=== PATIENT | female | born 1975 | race African-American/Black ===

== ENCOUNTER → 2017-01-02 | Outpatient (CLI) | payer BC ==
[~2017-01-02] MED LIST: ABAC1TAB13 PO; CALC-178 PO; CETI10TA22 PO; IBUP200T44 PO; MEDR5TAB PO
--- NOTE | 2017-01-02 13:51 | KCIC ---
DATE: 01/02/2017 EXAM: MAMMO MAGNUS SCREENING BILATERAL HISTORY: Routine screening COMPARISON: 12/27/2015 This study was interpreted with the benefit of Computerized Aided Detection (CAD). The breast parenchyma is heterogeneously dense, which could reduce sensitivity of mammography. Breast parenchyma level C. FINDINGS: 2-D and 3-D tomosynthesis imaging was performed in CC and MLO projections. There is an unchanged benign-appearing lymph node type density in the superior aspect of the left breast as seen on the oblique view. No new or enlarging breast densities are seen. No suspicious microcalcifications are evident. IMPRESSION: Stable mammograms without evidence of malignancy. BI-RADS CATEGORY: 2 BENIGN FINDING(S) RECOMMENDED FOLLOW-UP: 12M 12 MONTH FOLLOW-UP PQRS compliance statement: Patient information was entered into a reminder system with a target due date for the next mammogram. Mammography is a sensitive method for finding small breast cancers, but it does not detect them all and is not a substitute for careful clinical examination. A negative mammogram does not negate a clinically suspicious finding and should not result in delay in biopsying a clinically suspicious abnormality. "Our facility is accredited by the [employer] Mammography [employer]."
== END | disposition home or self-care (01) ==
LOC: KCIC MAMMO 12:36
PROVIDERS: ATTEND Internal Medicine
DX: Z12.31 Encounter for screening mammogram for malignant neoplasm of breast (principal)
CPT/HCPCS: 77063; G0202; 77067

== ENCOUNTER 2017-02-12 10:01 | Day surgery (SDC) | payer BC ==
[2017-02-12 10:50] LABS: NEG OBC UR NEG; POS OBC UR POS
[2017-02-12] MEDS: IV RINGERS,LACTATED 1000ML 1,000 ML IV (11:02)
[2017-02-12] MEDS ORDERED: ONDANSETRON PF 4 MG/2 ML VIAL. (11:58)
[2017-02-12] MEDS ORDERED: LIDOCAINE 2% PF Vial for OR 5 ML VIAL. (11:58)
[2017-02-12] MEDS ORDERED: MIDAZOLAM HCL/PF 2 MG/2 ML VIAL. (11:58)
[2017-02-12] MEDS ORDERED: PROPOFOL 20 ML IV (11:58)
[2017-02-12] MEDS ORDERED: DEXAMETHASONE SOD PHOS 20 MG/5 ML VIAL. (11:58)
[2017-02-12] MEDS ORDERED: fentaNYL PF VIAL 100 MCG/2 ML VIAL (13:28)
[2017-02-12] MEDS: NORMAL SALINE IV (13:40)
[2017-02-12] MEDS: CEFAZOLIN SODIUM IV (13:40)
[2017-02-12] MEDS ORDERED: SEVOFLURANE 31 TO 60 MINUTES. IH (13:44)
[2017-02-12] MEDS ORDERED: LIDOCAINE 1% PF 2 ML VIAL. ID (15:30)
[2017-02-12] MEDS ORDERED: fentaNYL PF VIAL 100 MCG/2 ML VIAL IV (15:30)
[2017-02-12] MEDS ORDERED: HYDROmorphone 2 MG/ML VIAL IV (15:30)
[2017-02-12] MEDS ORDERED: IV RINGERS,LACTATED 1000ML 1,000 ML IV (15:30)
[2017-02-12] MEDS ORDERED: PROCHLORPERAZINE 10 MG/2 ML VIAL. IV (15:30)
[2017-02-12] MEDS ORDERED: ONDANSETRON PF 4 MG/2 ML VIAL. IV (15:30)
[2017-02-12] MEDS ORDERED: MORPHINE SULFATE 2 MG/ML DISP.SYRIN. IV (15:30)
[2017-02-12] MEDS: fentaNYL PF VIAL 100 MCG/2 ML VIAL IV (15:37)
[2017-02-12] MEDS: IBUPROFEN 200 MG TABLET. PO (15:49)
== END 2017-02-12 16:43 | disposition home or self-care (01) ==
LOC: SURG 10:01
DX: N84.0 Polyp of corpus uteri (principal); N92.0 Excessive and frequent menstruation with regular cycle; Z87.448 Personal history of other diseases of urinary system
CPT/HCPCS: 58563; 81025; J1100; J2250; J2405; J2704; J3010

== ENCOUNTER → 2018-01-06 | Outpatient (CLI) | payer BC ==
[2017-02-12 15:47] VITALS: BP 127/69
--- NOTE | 2018-01-06 12:40 | KCIC ---
Bilateral digital screening mammograms with 3-D tomosynthesis: Reason for examination: Routine screening. Comparison is made to previous studies dated back to 12/01/2014. Bilateral mammograms in CC and oblique projections were obtained with 2-D imaging and 3-D tomosynthesis imaging on a Siemens Inspiration unit and reviewed on the workstation. Interpretation was made with the benefit of CAD. The skin and nipples show no abnormalities. No abnormal axillary lymph nodes are seen. The breast parenchyma is extremely dense. (Breast density: Category D.) There are no dominant masses, suspicious calcifications or architectural distortion. Impression: No evidence of malignancy. Recommend routine screening. Your patient's mammogram demonstrates that she has dense breast tissue (breast density category C or D), which could hide abnormalities, and if she has other risk factors for breast cancer that have been identified, she might benefit from supplemental screening tests that may be suggested by you as her ordering physician. Dense breast tissue, in and of itself, is a relatively common condition. Therefore, this information is not provided to cause undue concern, but rather to raise your awareness and to promote discussion with your patient regarding the presence of other risk factors, in addition to dense breast tissue. Your patient's mammography results will be sent to her. BI-RAD Category 1: Negative. "Our facility is accredited by the [employer] Mammography [employer]." This patient's information has been entered into a reminder system for the patient to be notified with the results of her examination and a target date for the next mammogram. Electronically signed by: Viviana Peterson MD (01/06/2018 12:36 PM) [id number]
== END | disposition home or self-care (01) ==
LOC: KCIC MAMMO 09:26
PROVIDERS: ATTEND Internal Medicine
DX: Z12.31 Encounter for screening mammogram for malignant neoplasm of breast (principal)
CPT/HCPCS: 77063; 77067

== ENCOUNTER → 2019-01-07 | Outpatient (CLI) | payer BC ==
[2017-02-12 15:47] VITALS: BP 127/69
--- NOTE | 2019-01-07 16:22 | KCIC ---
Bilateral digital screening mammograms with 3-D tomosynthesis: Reason for examination: Routine screening. Comparison is made to previous studies dated 01/06/2018 and 01/02/2017. Bilateral mammograms in CC and oblique projections were obtained with 2-D imaging and 3-D tomosynthesis imaging on a Siemens Inspiration unit and reviewed on the workstation. Interpretation was made with the benefit of CAD. The skin and nipples show no abnormalities. No abnormal axillary lymph nodes are seen. The breast parenchyma is extremely dense. (Breast density: Category D.) There are no dominant masses, suspicious calcifications or architectural distortion. Impression: No evidence of malignancy. Recommend routine screening. Your patient's mammogram demonstrates that she has dense breast tissue (breast density category C or D), which could hide abnormalities, and if she has other risk factors for breast cancer that have been identified, she might benefit from supplemental screening tests that may be suggested by you as her ordering physician. Dense breast tissue, in and of itself, is a relatively common condition. Therefore, this information is not provided to cause undue concern, but rather to raise your awareness and to promote discussion with your patient regarding the presence of other risk factors, in addition to dense breast tissue. Your patient's mammography results will be sent to her. BI-RAD Category 2: Benign. "Our facility is accredited by the [employer] Mammography [employer]." This patient's information has been entered into a reminder system for the patient to be notified with the results of her examination and a target date for the next mammogram. Electronically signed by: Viviana Peterson MD (01/07/2019 4:19 PM) [id number]
== END | disposition home or self-care (01) ==
LOC: KCIC MAMMO 14:51
PROVIDERS: ATTEND Internal Medicine
DX: Z12.31 Encounter for screening mammogram for malignant neoplasm of breast (principal)
CPT/HCPCS: 77063; 77067

== ENCOUNTER → 2020-01-09 | Outpatient (CLI) | payer BC ==
[2017-02-12 15:47] VITALS: BP 127/69
[~2020-01-09] MED LIST changes: -CETI10TA22 PO; +CETI10TA74 PO
--- NOTE | 2020-01-09 17:09 | KCIC ---
Bilateral digital screening mammograms and tomosynthesis Reason for examination: Routine screening. Comparison is made to previous study dated January 07, 2019 and priors Routine CC and MLO digital views obtained. Interpretation was made with the benefit of CAD. The skin and nipples show no abnormalities. No abnormal axillary lymph nodes are seen. The breast parenchyma is extremely dense. (Breast density: Category D.) There are no suspicious masses, suspicious calcifications or architectural distortion. Impression: Negative mammogram. Recommend routine screening. ?Your patient's mammogram demonstrates that she has dense breast tissue (breast density category C or D), which could hide abnormalities, and if she has other risk factors for breast cancer that have been identified, she might benefit from supplemental screening tests that may be suggested by you as her ordering physician. Dense breast tissue, in and of itself, is a relatively common condition. Therefore, this information is not provided to cause undue concern, but rather to raise your awareness and to promote discussion with your patient regarding the presence of other risk factors, in addition to dense breast tissue. Your patient's mammography results will be sent to her. BI-RAD Category 1: Negative. "Our facility is accredited by the [employer] Mammography [employer]." This patient's information has been entered into a reminder system for the patient to be notified with the results of her examination and a target date for the next mammogram. Electronically signed by: Jesús Hurst MD (01/09/2020 5:05 PM) [id number]
== END ==
LOC: KCIC MAMMO 10:59
PROVIDERS: ATTEND Internal Medicine
DX: Z12.31 Encounter for screening mammogram for malignant neoplasm of breast (principal)
CPT/HCPCS: 77063; 77067

== ENCOUNTER → 2021-01-08 | Outpatient (CLI) | payer BC ==
[2017-02-12 15:47] VITALS: BP 127/69
--- NOTE | 2021-01-08 14:19 | KCIC ---
Bilateral digital screening mammograms with 3-D tomosynthesis: Reason for examination: Routine screening. Comparison is made to previous studies dated back to 12/01/2014. Bilateral mammograms in CC and oblique projections were obtained with 2-D imaging and 3-D tomosynthes is imaging on a Siemens Inspiration unit and reviewed on the workstation. Interpretation was made nolvia olea the benefit of CAD. The skin and nipples show no abnormalities. No abnormal axillary lymph nodes are seen. The breast par enchyma is extremely dense. (Breast density: Category D.) There appears to be a small 1 cm circumscri bed nodule in the 7:00 position of the right breast approximately 5.5 cm from the nipple. There also appears to be a 2.2 cm elongated nodular density at approximately the 5:00 position 8 cm from the nip ple in the right breast. Recommend further evaluation with ultrasound. There are no other dominant ma sses, suspicious calcifications or architectural distortion. Impression: Nodular densities at the 5:00 C and 7:00 B positions of the right breast. Recommend further evaluatio n with ultrasound. Your patient's mammogram demonstrates that she has dense breast tissue (breast density category C or D), which could hide abnormalities, and if she has other risk factors for breast cancer that have bee n identified, she might benefit from supplemental screening tests that may be suggested by you as her ordering physician. Dense breast tissue, in and of itself, is a relatively common condition. Therefo re, this information is not provided to cause undue concern, but rather to raise your awareness and t o promote discussion with your patient regarding the presence of other risk factors, in addition to d ense breast tissue. Your patient's mammography results will be sent to her. BI-RAD Category 0: Incomplete. Needs additional imaging evaluation. "Our facility is accredited by the [employer] Mammography Program." This patient's information has been entered into a reminder system for the patient to be notified nolvia olea the results of her examination and a target date for the next mammogram. Electronically signed by: Viviana Peterson MD (01/08/2021 2:17 PM) [email or web address]
== END ==
LOC: KCIC MAMMO 12:39
PROVIDERS: ATTEND Internal Medicine
DX: Z12.31 Encounter for screening mammogram for malignant neoplasm of breast (principal)
CPT/HCPCS: 77063; 77067

== ENCOUNTER → 2021-01-23 | Outpatient (CLI) | payer BC ==
[2017-02-12 15:47] VITALS: BP 127/69
--- NOTE | 2021-01-23 15:23 | KCIC ---
Right breast ultrasound: Reason for examination: Nodular densities on screening mammogram. Comparison is made to mammographic exam dated 01/08/2021. Ultrasound examination of the right breast and axilla was performed. There is a small 9.7 x 8.8 x 3.8 mm hypoechoic circumscribed lesion in parallel orientation at the 7: 00 position 4 cm from the nipple which likely represent small fibroadenoma. There is also a small 5.3 x 4.3 mm hypoechoic fibrocystic type nodule at the 7:00 position 6 cm from the nipple. No other disc rete cystic or solid nodules are seen in the right breast. No abnormal appearing lymph nodes are seen in the right axilla. IMPRESSION: Benign-appearing 9.7 mm nodule probably representing a fibroadenoma at the 7:00 position 4 cm from th e nipple. Fibrocystic type 5.3 mm nodule at the 7:00 position 6 cm from the nipple. Recommend 6 month follow-up with right breast mammograms and ultrasound. BI-RADS Category 3: Probably Benign. "Our facility is accredited by the [employer] Mammography [employer]." This patient's information has been entered into a reminder system for the patient to be notified wit h the results of her examination and a target date for the next mammogram. Electronically signed by: Viviana Peterson MD (01/23/2021 3:21 PM) [email or web address]
== END ==
LOC: KCIC US 12:43
PROVIDERS: ATTEND Internal Medicine
DX: N63.13 Unspecified lump in the right breast, lower outer quadrant (principal); N64.89 Other specified disorders of breast
CPT/HCPCS: 76641

== ENCOUNTER → 2021-05-31 | Outpatient (CLI) | payer BC ==
[2017-02-12 15:47] VITALS: BP 127/69
--- NOTE | 2021-05-31 13:19 | KCIC ---
EXAM: XR CHEST 2V 05/31/2021 10:40 AM CLINICAL INDICATION: Cough, bronchitis for 3 weeks. Rule out pneumonia. COMPARISON: None TECHNIQUE: PA and lateral views of the chest FINDINGS: The heart is normal in size. The lungs are well-expanded. There are nodular opacities at t he the right lung base. The left lung is clear. No pleural effusion or pneumothorax. No obvious acute osseous abnormality. IMPRESSION: Right basilar opacities suspicious for pneumonia. Follow-up radiograph after treatment i s needed to ensure resolution. Electronically signed by: Anayeli Welsh MD (05/31/2021 1:17 PM) [id number]
== END ==
LOC: KCIC 10:33
PROVIDERS: ATTEND Internal Medicine Infectious Disease
DX: R91.8 Other nonspecific abnormal finding of lung field (principal); R05.9 Cough, unspecified; J40 Bronchitis, not specified as acute or chronic
CPT/HCPCS: 71046